=== PATIENT | female | born 1980 | race Caucasian/White ===

== ENCOUNTER → 2016-10-01 | Outpatient (CLI) | payer OTHER | END | disposition home or self-care (01) | CPT/HCPCS: 59025; 99213 ==

== ENCOUNTER 2016-10-14 11:06 | Inpatient (IN) | payer OTHER ==
[2016-10-16] MEDS ORDERED: OXYTOCIN 10 UNIT/ML 1 ML VIAL IM PRN (06:30)
[2016-10-16] MEDS ORDERED: OXYTOCIN 30 UNITS/500 ML NS 30 UNIT in SALINE 1 500ML.BAG IV SCH ×2 (06:30→15:45)
[2016-10-16] MEDS ORDERED: METHYLERGONOVINE 0.2 MG/ML 1 ML AMP IM PRN (06:30)
[2016-10-16] MEDS ORDERED: CARBOPROST TROMETHAMINE 250 MCG/ML 1 ML AMP IM PRN (06:30)
[2016-10-16] MEDS ORDERED: TERBUTALINE 1 MG/ML VIAL SQ PRN (06:30)
[2016-10-16] MEDS ORDERED: LIDOCAINE 1% (PF) 10 MG/ML (30 ML SDV) SQ PRN (06:30)
[2016-10-16 06:53] VITALS: BMI 27.9
[2016-10-16 06:54] LABS: Basophils # (A) 0.1 k/uL (0-0.2); Basophils % (A) 1 %; CH 29.6; CHCM 34.8; Eosinophils # (A) 0.3 k/uL (0-0.7); Eosinophils % (A) 2 %; HCT 41.1 % (34.0-46.0); HDW 2.62; HGB 14.2 gm/dL (11.4-16.0); Luc # (Auto) 0.12; Luc % (Auto) 1; Lymphocytes # (A) 2.2 k/uL (1.0-4.8); Lymphocytes % (A) 21 %; MCH 29.5 pg (25.0-35.0); MCHC 34.5 g/dL (31.0-37.0); MCV 85.6 fL (80.0-100.0); Mean Platelet Volume 9.9; Monocytes # (A) 0.9 k/uL (0-1.0); Monocytes % (A) 8 %; Neutrophils # (A) 6.8 k/uL (1.3-7.7); Neutrophils % (A) 67 %; RDW 13.8 % (11.5-15.5); WBC 10.2 k/uL (3.8-10.6); WBC (Perox) 10.43
[2016-10-16] MEDS: LACTATED RINGERS 1,000 ML IV SCH ×3 (06:59→14:34)
--- NOTE | 2016-10-16 07:04 | P.HPOB ---
History of Present Illness H&P Date: 10/16/16 Chief Complaint: Here for elective induction of labor at 40-2/7 weeks' This is a 35-year-old white female 2 para 1001 EDC 10/14/2016 at 40-2/7 weeks' gestation. Patient presents today for induction of labor, cervix favorable, unremarkable, she denies uterine contractions or vaginal bleeding, fetus is been active. Obstetric history: Blood type is O+, rubella status immune. Hepatitis B surface antigen, gonorrhea and chlamydia cultures, HIV testing, group B strep cultures, Pap smear all negative. Rubella status immune. VDRL testing negative. One-hour Glucola 134. Past medical history is significant for tuberculosis of the right cheek in 1995. Past surgical history sinus surgery 2009, wisdom teeth extracted, benign tumor removed of the lower back. Current medications vitamins daily, metformin daily. Family history unremarkable. ALLERGIES none known. On exam this is a pleasant white female, 5 foot 5 inches, 168 pounds, vital signs are stable and she is afebrile. The general physical exam is within normal limits. The chest is clear in all [place]. The extremities reveal no edema. The cervix is 4 cm dilated, 60% effaced, vertex presentation, soft, anterior, vertex presentation. Artificial amniorrhexis reveals clear fluid. heart tones are in the 140s with frequent accelerations, consistent with reactive NST. Impression: 40-2/7 weeks intrauterine , favorable multiparous cervix, here for induction of labor, all signs reassuring. Plan: Patient is requesting cord blood collection, kick available and reviewed. Oxytocin per hospital protocol. Close maternal and surveillance. Anticipate normal spontaneous vaginal delivery. Past Medical History Additional Past Medical History / Comment(s): back pain, History of Any Multi-Drug Resistant Organisms: None Reported Additional Past Surgical History / Comment(s): fatty tumors removed Past Psychological History: No Psychological Hx Reported Smoking Status: Never smoker Past Alcohol Use History: Rare Past Drug Use History: None Reported Medications and Allergies Home Medications Medication Instructions Recorded Confirmed Type Pnv #78/Iron Asp Gly/FA#1/Dha 1 each PO DAILY 06/18/16 10/16/16 History [Prenate Dha Softgel] Calcium Carbonate [Tums] 500 mg PO Q2-3H PRN 02/01/17 02/01/17 History Allergies Allergy/AdvReac Type Severity Reaction Status Date / Time No Known Allergies Allergy Verified 10/16/16 06:26 Exam - Vital Signs Vital signs: Vital Signs Temp Pulse Resp BP 10/16/16 06:31 97.4 F L 94 16 132/82 Intake and Output 10/15/16 10/16/16 10/16/16 22:59 06:59 14:59 Other: Weight 76.204 kg Results Result Diagrams: 10/16/16 06:35
[2016-10-16] MEDS ORDERED: fentaNYL (PF) 50 MCG/ML 5 ML AMP ONE (10:23)
[2016-10-16] MEDS ORDERED: BUPIVACAINE (PF) 0.25% 30 ML VIAL ONE (10:23)
[2016-10-16] MEDS ORDERED: SODIUM CHLORIDE 0.9% 100 ML BAG ONE (10:23)
[2016-10-16] MEDS ORDERED: BENZOCAINE/MENTHOL SPRAY 1 GM/SPRAY AEROSOL TOPICAL PRN (15:42)
[2016-10-16] MEDS ORDERED: SIMETHICONE 80 MG CHEWABLE PO PRN (15:42)
[2016-10-16] MEDS ORDERED: WITCH HAZEL 1 EACH MED..PAD TOPICAL PRN (15:42)
[2016-10-16] MEDS ORDERED: HYDROCORTISONE 2.5% RECTAL CREAM 30 GM TUBE RECTAL PRN (15:42)
[2016-10-16] MEDS ORDERED: ACETAMINOPHEN TAB 325 MG TAB PO PRN (15:42)
[2016-10-16] MEDS ORDERED: diphenhydrAMINE 50 MG/ML 1 ML VIAL IVP PRN ×2 (15:42)
[2016-10-16] MEDS ORDERED: diphenhydrAMINE 50 MG CAP PO PRN (15:42)
[2016-10-16] MEDS ORDERED: ZOLPIDEM 5 MG TAB PO PRN (15:42)
[2016-10-16] MEDS ORDERED: diphenhydrAMINE 25 MG CAP PO PRN (15:42)
[2016-10-16] MEDS ORDERED: LANOLIN CREAM 5 GM TUBE TOPICAL PRN (15:42)
--- NOTE | 2016-10-16 15:42 | P.PROBDLV ---
Vaginal Delivery Note - . Vaginal Delivery Note: This is a 35-year-old white female 2 para 1001 EDC 10/14/2016 at 40-2/7 weeks' gestation. Patient presented for induction for postdates with favorable multiparous cervix. is essentially unremarkable, group B strep cultures negative, rubella status immune, blood type O+. Please see my admitting history and physical for details. On admission patient was 4 cm dilated, 60% effaced, -2 station. Artificial amniorrhexis revealed clear fluid. Oxytocin was started and titrated per hospital protocol. She became uncomfortable and requested epidural, this was placed without difficulty per the anesthesia staff. She progressed well through the first stage of labor, heart tones were reassuring throughout the first and second stages. Patient was judged to be completely dilated at 1514 hrs. Perineal body was prepped and draped in usual sterile fashion. With excellent maternal expulsive efforts the head delivered occiput anterior. There was a nuchal cord 1 that was easily reduced. The left or anterior shoulder was then delivered from underneath the pubic symphysis at which time the oropharynx, nasopharynx and external nares were all bulb suctioned on the perineal body. Patient was officially delivered of a liveborn male infant at 1517 hrs. Umbilical cord was doubly clamped and ligated, he was handed to waiting nurses for evaluation where scores of 8 and 9 at one and 5 minutes respectively were given. Placenta delivered spontaneously after collection of cord blood per screen printing loader unloader's direction, and sample of umbilical cord sent as well. Placenta was spontaneously delivered, inspected and noted to be intact with trivascular cord at 1522 hrs. At this time the perineal body was redraped. Inspection of the cervix, vagina, perineum and perirectal areas revealed a small first-degree perineal laceration. This was easily repaired in the usual fashion using 3-0 Vicryl suture. Fundus is firm and in the midline, symmetric and 18 week size upon completion of delivery. All sponge needle and enhancement counts are correct at the end of the procedure. Patient and her are allowed to begin the bonding experience in the LDR. They are requesting circumcision for their son. Estimated blood loss 300 mL's.
[2016-10-16] MEDS: IBUPROFEN 600 MG TAB PO PRN (16:12)
[2016-10-16] MEDS: SENNOSIDES-DOCUSATE SODIUM 1 EACH TAB PO SCH (20:14)
[2016-10-17] MEDS: IBUPROFEN 600 MG TAB PO PRN (02:22)
[2016-10-17] MEDS: SENNOSIDES-DOCUSATE SODIUM 1 EACH TAB PO SCH ×2 (07:34→20:04)
--- NOTE | 2016-10-17 07:46 | P.PN ---
Subjective Principal diagnosis: day #1 Objective - Vital Signs Vital signs: Vital Signs Temp 98.1 F 10/17/16 00:00 Pulse 96 10/17/16 00:00 Resp 18 10/17/16 00:00 BP 125/75 10/17/16 00:00 Pulse Ox 96 10/16/16 15:30 Intake & Output 10/16/16 10/17/16 10/17/16 18:59 06:59 18:59 Intake Total 8.9 Balance 8.9 Intake: Intake, IV Titration 8.9 Amount Oxytocin 30 Units/500 ml 8.9 Ns 30 unit In Saline 1 500ml.bag @ 1 MILLIUNIT/ MIN 1 mls/hr IV .Q24H LEEANNA Rx#:[id number] Other: # Voids 1 2 - Constitutional General appearance: Present: average body habitus, cooperative - EENT Eyes: Present: PERRLA ENT: Present: hearing grossly normal - Neck Neck: Present: normal ROM Thyroid: bilateral: normal size - Respiratory Respiratory: bilateral: CTA - Cardiovascular Rhythm: regular - Gastrointestinal General gastrointestinal: Present: normal bowel sounds - Integumentary Integumentary: Present: normal - Neurologic Neurologic: Present: CNII-XII intact - Musculoskeletal Musculoskeletal: Present: gait normal, strength equal bilaterally - Psychiatric Psychiatric: Present: A&O x's 3, appropriate affect, intact judgment & insight - Labs CBC & Chem 7: 10/16/16 06:35 Assessment and Plan Plan: Patient choosing discharge home tomorrow. Circumcision performed. Continue care. Time with Patient: Less than 30
[2016-10-17] MEDS: Acetaminophen-Codeine 300-30mg TAB PO PRN ×2 (11:09→17:18)
[2016-10-18] MEDS: Acetaminophen-Codeine 300-30mg TAB PO PRN (00:21)
--- NOTE | 2016-10-18 07:44 | P.DS ---
Providers Date of admission: 10/16/16 06:13 Expected date of discharge: 10/18/16 Attending physician: Jackie Gordillo Primary care physician: Huy Trotter [facility] Course: This is a 35-year-old white female 2 para 1001 EDC 10/14/2016 at 40-2/7 weeks' gestation. Patient presented for Induction for favorable at term. was essentially unremarkable, group B strep cultures negative, blood type O+, rubella status immune. Please see my dictated history and physical for details. Patient was admitted, artificial amniorrhexis revealed clear fluid, oxytocin was started and titrated per hospital protocol. Epidural was placed per her request. She went on to swiftly deliver a liveborn male with scores of 8 and 9 at one and 5 minutes respectively. There was a nuchal cord 1 that was reduced. Cord blood collection was performed using the kit that the patient presented with. Infant weight 8 lbs. 7 oz. or 3820 g, please see my dictated delivery note for details. Estimated blood loss 300 mL, small first- degree perineal laceration easily repaired. Circumcision has been performed. Patient and her baby are both doing well this morning. Patient is voiding, ambulate, passing flatus without difficulty. Vital signs are stable and she is afebrile. Breasts are not engorged. She has good pain relief utilizing nonsteroidal Motrin products. Patient is judged to be in excellent condition for discharge home. She will follow-up with me in the office in 6 weeks. I have given her prescription for a double electric breast pump. She will continue taking her vitamin daily. I've asked her to call with any fevers shakes or chills, foul smelling or copious lochia, with the passage of large blood clots, with any pain not alleviated by Motrin [id number], or indeed with any concerns. We have reviewed her options for contraception and we will discuss this further in the office in 6 weeks. Plan - Discharge Summary Discharge Medication List Pnv #78/Iron Asp Gly/FA#1/Dha [Prenate Dha Softgel] 1 each PO DAILY 06/18/16 [ History] Calcium Carbonate [Tums] 500 mg PO Q2-3H PRN 10/16/16 [History] Follow up Appointment(s)/Referral(s): Jackie Gordillo MD [STAFF PHYSICIAN] - 6 Weeks Discharge Disposition: HOME SELF-CARE
[2016-10-18] MEDS: SENNOSIDES-DOCUSATE SODIUM 1 EACH TAB PO SCH (08:06)
[2016-10-18 08:13] VITALS: BP 118/64; PULSE 78; RESP 16; TEMP 97.7
== END 2016-10-18 11:44 | disposition home or self-care (01) | DRG 775 ==
LOC: 4FBP 10-16 06:13
PROVIDERS: ADMIT Obstetrics & Gynecology; ATTEND Obstetrics & Gynecology
PROC: 10E0XZZ Delivery of Products of Conception, External Approach (ICD-10-PCS; principal; 2016-10-16)
PROC: 10907ZC Drainage of Amniotic Fluid, Therapeutic from Products of Conception, Via Natural or Artificial Opening (ICD-10-PCS; 2016-10-16)
PROC: 0HQ9XZZ Repair Perineum Skin, External Approach (ICD-10-PCS; 2016-10-16)
PROC: 3E033VJ Introduction of Other Hormone into Peripheral Vein, Percutaneous Approach (ICD-10-PCS; 2016-10-16)
PROC: 3E0S3NZ Introduction of Analgesics, Hypnotics, Sedatives into Epidural Space, Percutaneous Approach (ICD-10-PCS; 2016-10-16)
DX: O70.0 First degree perineal laceration during delivery (principal); O48.0 Post-term pregnancy; O69.81X0 Labor and delivery complicated by cord around neck, without compression, not applicable or unspecified; Z3A.40 40 weeks gestation of pregnancy; Z37.0 Single live birth
CPT/HCPCS: 85025; 88307

== ENCOUNTER → 2017-07-30 | Outpatient (CLI) | payer OTHER ==
--- NOTE | 2017-07-30 09:55 | US ---
EXAMINATION TYPE: US abdomen complete DATE OF EXAM: 07/30/2017 COMPARISON: Limited abdominal ultrasound November 01, 2014 CLINICAL HISTORY: R11.2 Nausea with vomiting. nausea for 2 weeks with 1 episode of vomiting EXAM MEASUREMENTS: Liver Length: 15.9 cm Gallbladder Wall: 0.3 cm CBD: 0.2 cm Spleen: 10.5 cm Right Kidney: 10.2 x 4.3 x 4.1 cm Left Kidney: 10.8 x 5.0 x 5.3 cm Pancreas: visualized portions appear wnl Liver: visualized portions appear wnl Gallbladder: no evidence of stones Evidence for sonographic No's sign: no CBD: wnl Spleen: wnl Right Kidney: no evidence of hydronephrosis or mass Left Kidney: no evidence of hydronephrosis or mass Upper IVC: wnl Abd Aorta: wnl The visualized liver is homogenous. The intrahepatic portion of the IVC and visualized abdominal aor ta are within normal limits. There is no evidence of cholelithiasis. Common bile duct is unremarkab le. The visualized portions of the pancreas are homogenous. The spleen is unremarkable. Kidneys ar e symmetric and free of hydronephrosis. No renal lesions are seen on images saved. IMPRESSION: No suspicious finding is seen to account for patient's symptoms.
== END | disposition home or self-care (01) ==
LOC: RADUSWWP 08:33
PROVIDERS: ATTEND Internal Medicine
DX: R11.2 Nausea with vomiting, unspecified (principal)
CPT/HCPCS: 76700

== ENCOUNTER → 2018-10-01 | Outpatient (CLI) | payer OTHER ==
--- NOTE | 2018-10-05 18:10 | MM ---
Reason for exam: screening (asymptomatic). Baseline mammogram. History: Family history of breast cancer in maternal grandmother at age 70 and breast cancer in paternal aunt at age 40. Took hormonal contraceptives for 18 years. Physical Findings: Nurse Summary: 1 cm mass at 3 o'clock right breast. MG Screening Mammo w CAD Bilateral CC and MLO view(s) were taken. The breast tissue is extremely dense which could obscure a lesion on mammography. No suspicious abnormality. ASSESSMENT: Incomplete: need additional imaging evaluation, BI-RAD 0 RECOMMENDATION: Ultrasound of the right breast. Palpable area
--- NOTE | 2018-10-05 18:15 | USB ---
History: Family history of breast cancer in maternal grandmother at age 70 and breast cancer in paternal aunt at age 40. Took hormonal contraceptives for 18 years. US Breast Workup Limited RT Right limited breast ultrasound including focal area of concern, retroareolar and axilla demonstrates No cystic or solid lesion seen. No suspicious finding. Patient should have next mammogram at age 41 or 10 years prior to 1st degree relatives age at time of diagnosis. These results were verbally communicated with the patient and result sheet given to the patient on 10/01/18. ASSESSMENT: Negative, BI-RAD 1 RECOMMENDATION: Return to routine screening mammogram schedule for both breasts.
== END | disposition home or self-care (01) ==
LOC: RADMAMWWP 10:45
PROVIDERS: ATTEND Obstetrics & Gynecology
DX: Z12.31 Encounter for screening mammogram for malignant neoplasm of breast (principal); R92.8 Other abnormal and inconclusive findings on diagnostic imaging of breast
CPT/HCPCS: 77067

== ENCOUNTER → 2019-08-04 | Outpatient (CLI) | payer BC ==
--- NOTE | 2019-08-05 04:27 | MR ---
EXAMINATION TYPE: MR thoracic spine wo con DATE OF EXAM: 08/04/2019 COMPARISON: 11/04/2014 HISTORY: Mid back pain/rt scapula Standard multiplanar, multisequence MRI departmental protocol Multiplanar, multisequence images of the facet spine were acquired. FINDINGS: Thoracic vertebra have normal alignment. Disc spaces are fairly normal. There is no neelam dinesh fracture. There are multiple discrete rounded foci of increased signal on the T1 and T2 images i n the mid and lower thoracic vertebral bodies that measure up to 10 mm. These are probably multiple h emangiomata. There is no thoracic spinal stenosis. There is no compression fracture. Thoracic spinal cord has norm al signal pattern. There is no sign of edema. There is no thoracic paraspinal mass. IMPRESSION: No fracture. No focal bone destruction. Multiple thoracic lesions consistent with hemangiomas unchang ed compared to old exam.
== END | disposition home or self-care (01) ==
LOC: RADMRIMAIN 18:43
PROVIDERS: ATTEND Internal Medicine
DX: M54.6 Pain in thoracic spine (principal)
CPT/HCPCS: 72146

== ENCOUNTER → 2019-11-16 | Outpatient (CLI) | payer BC ==
--- NOTE | 2019-11-16 17:05 | NM ---
EXAMINATION TYPE: NM bone scan whole body DATE OF EXAM: 11/16/2019 COMPARISON: MRI 08/04/2019 HISTORY: Pain Delayed whole-body scanning was performed following the injection of 23.6 mCi Tc 99m MDP. Images acq uired 6 hours post injection. FINDINGS: Abnormal uptake is seen involving the mid thoracic spine. This is nonspecific by bone scan. Abnormal uptake involving the shoulders likely post arthritic. IMPRESSION: Abnormal uptake involving the mid to lower thoracic spine likely degenerative correlate with x-ray.
== END | disposition home or self-care (01) ==
LOC: RADNMMAIN 10:03
PROVIDERS: ATTEND Orthopaedic Surgery Orthopaedic Surgery of the Spine
DX: R93.7 Abnormal findings on diagnostic imaging of other parts of musculoskeletal system (principal); M54.40 Lumbago with sciatica, unspecified side; M79.10 Myalgia, unspecified site; M54.6 Pain in thoracic spine
CPT/HCPCS: 78306; A9503

== ENCOUNTER → 2020-07-03 | Outpatient (CLI) | payer BC ==
--- NOTE | 2020-07-04 12:29 | MM ---
Reason for exam: screening (asymptomatic). Last mammogram was performed 1 year and 9 months ago. History: Family history of breast cancer in maternal grandmother at age 70 and breast cancer in paternal aunt at age 40. Took hormonal contraceptives for 18 years. Physical Findings: A clinical breast exam by your physician is recommended on an annual basis and results should be correlated with mammographic findings. MG 3D Screening Mammo W/Cad Bilateral CC, MLO, and XCCL view(s) were taken. Prior study comparison: October 01, 2018, bilateral MG screening mammo w CAD. The breast tissue is heterogeneously dense. This may lower the sensitivity of mammography. There is no discrete abnormality. ASSESSMENT: Negative, BI-RAD 1 RECOMMENDATION: Routine screening mammogram of both breasts in 1 year.
== END | disposition home or self-care (01) ==
LOC: RADMAMWWP 11:09
PROVIDERS: ATTEND Obstetrics & Gynecology
DX: Z12.31 Encounter for screening mammogram for malignant neoplasm of breast (principal); Z80.3 Family history of malignant neoplasm of breast
CPT/HCPCS: 77063; 77067

== ENCOUNTER → 2021-01-03 | Outpatient (CLI) | payer BC ==
--- NOTE | 2021-01-03 13:38 | XR ---
EXAMINATION TYPE: XR chest 2V DATE OF EXAM: 01/03/2021 COMPARISON: Chest x-ray 11/01/2014 HISTORY: Chest pain TECHNIQUE: Frontal and lateral views of the chest are obtained. FINDINGS: There is no focal air space opacity, pleural effusion, or pneumothorax seen. The cardiac silhouette size is within normal limits. The osseous structures are intact. IMPRESSION: No acute cardiopulmonary process.
== END | disposition home or self-care (01) ==
LOC: RADXRMAIN 12:30
PROVIDERS: ATTEND Internal Medicine
DX: R07.9 Chest pain, unspecified (principal)
CPT/HCPCS: 71046

== ENCOUNTER → 2021-08-01 | Outpatient (CLI) | payer BC ==
--- NOTE | 2021-08-02 12:43 | MM ---
Reason for exam: screening (asymptomatic). Last mammogram was performed 1 year and 1 month ago. History: Family history of breast cancer in maternal grandmother at age 70 and breast cancer in paternal aunt at age 40. Took hormonal contraceptives for 18 years. Physical Findings: A clinical breast exam by your physician is recommended on an annual basis and results should be correlated with mammographic findings. MG 3D Screening Mammo W/Cad Bilateral CC and MLO view(s) were taken. Prior study comparison: July 03, 2020, bilateral MG 3d screening mammo w/cad. October 01, 2018, bilateral MG screening mammo w CAD. The breast tissue is heterogeneously dense. This may lower the sensitivity of mammography. There is no discrete abnormality. No significant changes when compared with prior studies. ASSESSMENT: Negative, BI-RAD 1 RECOMMENDATION: Routine screening mammogram of both breasts in 1 year.
== END ==
LOC: RADMAMWWP 14:55
PROVIDERS: ATTEND Obstetrics & Gynecology
DX: Z12.31 Encounter for screening mammogram for malignant neoplasm of breast (principal); Z80.3 Family history of malignant neoplasm of breast
CPT/HCPCS: 77063; 77067

== ENCOUNTER → 2022-08-28 | Outpatient (CLI) | payer BC ==
--- NOTE | 2022-08-29 08:35 | MM ---
Reason for Exam: Screening (asymptomatic). Last mammogram was performed 1 year(s) and 1 month(s) ago. Patient History: Menarche at age 13. First Full-Term at age 31. Late child-bearing (after 30). Patient used Hormonal Contraceptives for 18 years. Maternal grandmother had breast cancer, age 70. Paternal aunt had breast cancer, age 40. Last menstrual period: 08/14/2022 Risk Values: Marnie 5 year model risk: 0.8%. NCI Lifetime model risk: 13.6%. Prior Study Comparison: 10/01/2018 Bilateral Screening Mammogram, [facility]. 07/03/2020 Bilateral Screening Mammogram, [facility]. 08/01/2021 Bilateral Screening Mammogram, [facility]. Tissue Density: The breast tissue is heterogeneously dense. This may lower the sensitivity of mammography. Findings: Analyzed By CAD. There is no suspicious group of microcalcifications or new suspicious mass in either breast. Overall Assessment: Negative, BI-RAD 1 Management: Screening Mammogram of both breasts in 1 year. A clinical breast exam by your physician is recommended on an annual basis and results should be correlated with mammographic findings. [facility] will attempt to contact patient to return for supplemental views and ultrasound if indicated. Electronically signed and approved by: Zhen Diez DO
== END | disposition home or self-care (01) ==
LOC: RADMAMWWP 09:23
PROVIDERS: ATTEND Obstetrics & Gynecology
DX: Z12.31 Encounter for screening mammogram for malignant neoplasm of breast (principal); Z80.3 Family history of malignant neoplasm of breast
CPT/HCPCS: 77063; 77067

== ENCOUNTER → 2023-09-02 | Outpatient (CLI) | payer BC ==
--- NOTE | 2023-09-03 17:00 | MM ---
Reason for Exam: Screening (asymptomatic). Last screening mammogram was performed 12 month(s) ago. Patient History: Menarche at age 13. First Full-Term at age 31. Late child-bearing (after 31). Patient used Hormonal Contraceptives for 18 years. Maternal grandmother had breast cancer, age 70. Paternal aunt had breast cancer, age 40. Last menstrual period: 08/14/2023 Risk Values: Marnie 5 year model risk: 0.8%. NCI Lifetime model risk: 13.5%. Prior Study Comparison: 07/03/2020 Bilateral Screening Mammogram, [facility]. 08/01/2021 Bilateral Screening Mammogram, [facility]. 08/28/2022 Bilateral MG 3D screening mammo w/cad, [facility]. Tissue Density: The breast tissue is heterogeneously dense. This may lower the sensitivity of mammography. Findings: Analyzed By CAD. There is no suspicious group of microcalcifications or new suspicious mass in either breast. Overall Assessment: Negative, BI-RAD 1 Management: Screening Mammogram of both breasts in 1 year. Further clinical management of patient's medial right breast tenderness. Patient should continue monthly self-breast exams. A clinical breast exam by your physician is recommended on an annual basis. This exam should not preclude additional follow-up of suspicious palpable abnormalities. Note on Marnie scores and lifetime risk: 1. A Marnie score greater than 3% is considered moderate risk. If this is the case, consider specialist referral to assess eligibility for a risk reducing agent. 2. If overall lifetime risk for the development of breast cancer is 20% or higher, the patient may qualify for future screening with alternating mammogram and breast MRI. Electronically signed and approved by: Jammie Dhillon M.D. Radiologist
== END | disposition home or self-care (01) ==
LOC: RADMAMWWP 09:45
PROVIDERS: ATTEND Obstetrics & Gynecology
DX: Z12.31 Encounter for screening mammogram for malignant neoplasm of breast (principal); Z80.3 Family history of malignant neoplasm of breast
CPT/HCPCS: 77063; 77067

== ENCOUNTER → 2024-07-16 | Outpatient (CLI) | payer BC ==
--- NOTE | 2024-07-16 16:02 | CT ---
EXAMINATION TYPE: CT sinus wo con DATE OF EXAM: 07/16/2024 3:46 PM COMPARISON: 11/18/2012. CLINICAL INDICATION: Female, 43 years old with history of G50.1 ATYPICAL FACIAL PAIN; , Chronic sinus itis. Hx of sinus sx last being in 2009. TECHNIQUE: Multiple thin axial images were obtained through the paranasal sinuses without the use of IV contrast. Additional coronal and sagittal reformatted images were submitted for evaluation. Contrast used: none Oral contrast used: none CT DLP: 526.4 mGycm, Automated exposure control for dose reduction was used. FINDINGS: Frontal sinuses: Normally developed and aerated. Frontal Recess: Clear Maxillary Sinuses: Normally developed postsurgical changes with minimal mucosal thickening of the max illary sinuses.. Maxillary Infundibula([facility]): Postsurgical changes, patent., No Kerry cells identified. Ethmoid sinuses: Normally developed and aerated. Ethmoidal notch: Unprotected bilateral anterior ethm oidal arteries. Sphenoid sinuses: Normally developed and aerated. There is sellar sphenoid sinus pneumatization witho ut evidence of dehiscence. No dehiscence of carotid canal. No evidence of optic nerve dehiscence wit hin the sphenoid sinus. No evidence of Onodi cells. Sphenoethmoidal recesses: Clear. Nasal septum: Within normal limits.. Nasal Turbinates: Mild turbinate mucosal thickening. Mastoid air cells & middle ears: The air cells are clear. The middle ears are grossly unremarkable. Modified Soft tissues & Brain: Partially seen without gross abnormality. Globes are intact. Other: Cribriform plate demonstrates symmetric Keros classification type 3 cribriform plate. No evidence of bony dehiscence of skull base. Lamina papyracea is intact without evidence of remote orbital fracture or orbital prolapse into the e thmoid sinus. IMPRESSION: 1. Postsurgical changes without significant paranasal sinus disease. 2. The ostiomeatal units, frontonasal and sphenoethmoidal recesses are clear. [facility], Workstation: 5min [id number], 07/16/2024 3:59 PM
== END | disposition home or self-care (01) ==
LOC: RADCTMAIN 15:28
PROVIDERS: ATTEND Internal Medicine
DX: G50.1 Atypical facial pain (principal); J32.9 Chronic sinusitis, unspecified; Z98.890 Other specified postprocedural states
CPT/HCPCS: 70486

== ENCOUNTER → 2024-07-27 | Outpatient (CLI) | payer BC ==
[2024-07-27 19:18] LABS: T4, Free (Free Thyroxine) 1.44 ng/dL (0.80-1.80)
[2024-07-27 22:49] LABS: Thyroid Peroxidase Antibodies <9.0 U/mL (0.0-33.0)
== END | disposition home or self-care (01) ==
LOC: LABWHC1 12:29
PROVIDERS: ATTEND Otolaryngology
DX: Z00.00 Encounter for general adult medical examination without abnormal findings (principal); T78.3XXA Angioneurotic edema, initial encounter
CPT/HCPCS: 36415; 82306; 84439; 84443; 86038; 86160; 86161; 86332; 86376

== ENCOUNTER → 2024-09-03 | Outpatient (CLI) | payer BC ==
--- NOTE | 2024-09-07 10:14 | MM ---
Reason for Exam: Screening (asymptomatic). Last screening mammogram was performed 12 month(s) ago. Patient History: Menarche at age 13. First Full-Term at age 31. Late child-bearing (after 30). Patient used Hormonal Contraceptives for 18 years. Maternal grandmother had breast cancer, age 70. Paternal aunt had breast cancer, age 40. Maternal cousin had breast cancer. Mother had breast cancer, age 71. Last menstrual period: 08/12/2024 Risk Values: Marnie 5 year model risk: 1.3%. NCI Lifetime model risk: 18.9%. Prior Study Comparison: 08/01/2021 Bilateral Screening Mammogram, [facility]. 08/28/2022 Bilateral MG 3D screening mammo w/cad, [facility]. 09/02/2023 Bilateral MG 3D screening mammo w/cad, [facility]. Tissue Density: The breasts are extremely dense, which lowers the sensitivity of mammography. Findings: Analyzed By CAD. There is no suspicious group of microcalcifications or new suspicious mass in either breast. Stable benign-appearing lymph nodes in the left axilla unchanged from prior exams. Overall Assessment: Benign, BI-RAD 2 Management: Screening Mammogram of both breasts in 1 year. . Patient should continue monthly self-breast exams. A clinical breast exam by your physician is recommended on an annual basis. This exam should not preclude additional follow-up of suspicious palpable abnormalities. Note on Marnie scores and lifetime risk: 1. A Marnie score greater than 3% is considered moderate risk. If this is the case, consider specialist referral to assess eligibility for a risk reducing agent. 2. If overall lifetime risk for the development of breast cancer is 20% or higher, the patient may qualify for future screening with alternating mammogram and breast MRI. [facility], , 09/07/2024 10:11 AM. Electronically signed and approved by: Baljinder Thomason M.D. Radiologis
== END | disposition home or self-care (01) ==
LOC: RADMAMWWP 08:54
PROVIDERS: ATTEND Obstetrics & Gynecology
DX: Z12.31 Encounter for screening mammogram for malignant neoplasm of breast (principal); Z80.3 Family history of malignant neoplasm of breast; R92.343 Mammographic extreme density, bilateral breasts
CPT/HCPCS: 77063; 77067

== ENCOUNTER → 2025-01-22 | Outpatient (CLI) | payer BC ==
--- NOTE | 2025-01-22 07:39 | MR ---
EXAMINATION TYPE: MR knee RT wo con DATE OF EXAM: 01/21/2025 COMPARISON: Outside right knee x-ray January 14, 2025 HISTORY: Right knee pain for 2 months from skiing injury TECHNIQUE: Multiplanar, multisequence images of the knee is performed without IV contrast. FINDINGS: MEDIAL MENISCUS: Posterior inferior increased signal in the posterior horn sagittal image 6 and coron al image 24 does not definitively extend to articular surface. LATERAL MENISCUS: Anterior and posterior horns are intact without tear. CRUCIATE LIGAMENTS: The anterior and posterior cruciate ligaments are intact and unremarkable. COLLATERAL LIGAMENTS: The medial collateral ligament and lateral collateral ligament complex are inta ct and unremarkable. EXTENSOR MECHANISM: Visualized quadriceps and patellar tendons are intact. EFFUSION: No significant suprapatellar joint effusion. POPLITEAL CYST: No popliteal/barnes cyst. TRICOMPARTMENT SPACES: Mild tricompartment joint space loss. No significant spurring. CARTILAGE: Tricompartmental articular cartilage is preserved. BONE MARROW SIGNAL: No focal abnormal marrow signal is appreciated. OTHER: No additional significant abnormality is appreciated. IMPRESSION: 1. Subtle intrasubstance tear posterior periphery of the posterior horn medial meniscus. No full-thic kness meniscal or ligamentous tear is seen. [facility], , 01/22/2025 7:36 AM
== END | disposition home or self-care (01) ==
LOC: RADMRIMAIN 20:15
PROVIDERS: ATTEND Orthopaedic Surgery
DX: S83.241A Other tear of medial meniscus, current injury, right knee, initial encounter (principal); Y93.23 Activity, snow (alpine) (downhill) skiing, snowboarding, sledding, tobogganing and snow tubing

== ENCOUNTER → 2025-03-03 | Outpatient (CLI) | payer BC ==
--- NOTE | 2025-03-09 14:55 | P.PCN ---
Description of Procedure: CLINICAL: A home sleep apnea test has been done for confirmation of possible obstructive sleep apnea-hypopnea syndrome. DESCRIPTION OF PROCEDURE: RESULTS: Recording time was 7 hours 38 minutes. Evaluation time was 7 hours 27 minutes. Evaluation time is sufficient for making conclusion about results of the test. Raw data of sleep recording has been reviewed and is adequate. Respiratory channel showed 21 apneas and 141 hypopneas. Apnea-hypopnea index was 21.7 per hour. Pulse rate in the range between minimum 58, maximum 125, average 78 by computer calculation. Lowest desaturation was 71%. IMPRESSION: 1. Moderate Obstructive Sleep Apnea Hypopnea Syndrome. Please see other impressions from consultation. PLAN: 1. The patient will be started on auto-PAP treatment for correction of respiratory abnormallities during sleep. 2. I will see patient for follow up visit to discuss results of the test, evaluate clinical response on treatment with PAP therapy and make any necessary adjustments related to mask fitting, pressure, and humidification. 3. Watching weight. 4. Sleep hygiene with regular time in bed for at least 8 hours. 5. No driving if feeling any sleepiness. Thank you very much for allowing me to participate in the management of your patient. Sincerely, Pj Rose MD, PhD, FAASM Diplomat of [employer] [employer] Sleep Medicine [employer] of [place] [employer] [facility] [place] cc: Lauryn Proctor MD
== END ==
LOC: 3 N SLEEP 17:00
PROVIDERS: ATTEND Internal Medicine
DX: G47.33 Obstructive sleep apnea (adult) (pediatric) (principal)